=== PATIENT | female | born 1985 | race Two or more races ===

== ENCOUNTER 2020-08-24 21:05 | Emergency (ER) | payer SELFPAY ==
[~2020-08-24] VITALS: Ht 154.9 cm; Wt 88.6 kg
[~2020-08-24 21:05] MED LIST: CLIN300C9 PO; HYDR1TAB13 PO; IBUP-1060 PO
[2020-08-24 21:14] VITALS: BP 134/74
[2020-08-24] MEDS ORDERED: HYDR-2761 PO (22:31)
[2020-08-24] MEDS ORDERED: DOXY100T PO (22:31)
[2020-08-24] MEDS ORDERED: CEPH500C PO (22:31)
--- NOTE | 2020-08-24 22:31 | ED.ADGEN ---
Past Medical History Past Medical History: Asthma Past Surgical History: No Surgical History, Smoking Status: Never Smoker Alcohol Use: None Drug Use: None General Adult EDM: Chief Complaint: SYNCOPE HPI: HPI: Patient is a 35 year old female, brought to the emergency department by her for evaluation after syncopal episode while in the shower. Patient states she has bilateral labial abscesses and while she was in the shower this evening she applied pressure to them and both abscesses opened up. While she was squeezing the abscesses she began to feel weak and became very dizzy. She states that she got out of the shower to call for her family and then the next thing she remembers that she woke up on the floor. Patient states that she is aware of who she was when she woke up on the floor she just did not remember passing out. She denies any nausea, vomiting, vision changes, dizziness, headache, abdominal pain, numbness, tingling, or weakness at this time. She complains of bilateral labial pain that she rates a 10 out of 10 on the pain scale, she denies any alleviating factors, the pain increases if the areas are touched. Patient states when she fell she must of hit her head on something she has a 1 cm laceration just below her medial right eye. Review of Systems: Review of Systems: Complete ROS is negative unless otherwise noted in HPI. Current Medications: Current Medications Medications (Trade) Dose Ordered Sig/[facility] Start Time Stop Time Status Last Admin Dose Admin Acetaminophen/ Hydrocodone Bitart (Lortab 7.5/325) 1 tab 1X ONCE 08/24/20 22:45 08/24/20 22:46 DC Cephalexin HCl (Keflex) 500 mg 1X ONCE 08/24/20 22:45 08/24/20 22:46 DC Doxycycline Hyclate (Vibra-Tab) 100 mg 1X ONCE 08/24/20 22:45 08/24/20 22:46 DC Allergies: Allergies: Allergies Coded Allergies Type Severity Reaction Last Updated Verified No Known Drug Allergies 11/27/13 No Physical Exam: PE: See Above Constitutional: Well developed, well nourished, no acute distress, non-toxic appearance. HENT: Normocephalic, atraumatic, bilateral external ears normal, nose normal. Eyes: PERRLA, EOMI, conjunctiva normal, no discharge. Neck: Normal range of motion, no stridor. Cardiovascular: Heart rate regular rhythm Lungs & Thorax: Respirations even and unlabored, no retractions, no respiratory distress Abdomen: Nontender, soft Female : abscesses present of bilateral labia majora, both abscess sites are oozing bloody pus with moderate erythema, warmth, and indurated tissue surrou nding abscess sites. Skin: Warm, dry, no erythema, no rash; superficial laceration measuring 1 cm just below the medial aspect of the right eye, no visible foreign body, no active bleeding. Back: No tenderness Extremities: No cyanosis, ROM intact, no edema. Neurologic: Alert and oriented X 3, normal motor, normal sensory, no focal deficits noted. Psychologic: Affect normal, judgement normal, mood normal. Current Patient Data: Vital Signs: Vital Signs Date Time Temp Pulse Resp B/P (MAP) Pulse Ox O2 Delivery O2 Flow Rate FiO2 08/24/ 21:14 97.8 99 22 134/74 (94) 99 Room Air 97.8 EKG: EKG: [] Heart Score: C/O Chest Pain: No Risk Scores: Score 0 - 3: 2.5% MACE over next 6 weeks - Discharge Home Score 4 - 6: 20.3% MACE over next 6 weeks - Admit for Clinical Observation Score 7 - 10: 72.7% MACE over next 6 weeks - Early Invasive Strategies Radiology/Procedures: Radiology/Procedures: Laceration Repair by me: Anesthesia: None Location: Below medial right eye Tendon/Joint/Nerves: No injury Foreign body: None detected after copious irrigation and exploration with NS and chlorhexidine Technique: Dermabond Complexity: No subcutaneous sutures/mucosal repair/edge excision Post Closure Length: 1 cm Patient's bleeding was easily controlled in the department and there is no indication of anemia. No evidence of compartment syndrome, neurologic injury, vascular injury, open joint, tendon laceration, or foreign body. Patient is appropriate for outpatient follow up. Course & Med Decision Making: Course & Med Decision Making Pertinent Labs and Imaging studies reviewed. (See chart for details) 35-year-old female presented to emergency department for evaluation following a syncopal episode after applying pressure to labial abscesses while in the shower. Both abscess sites were open and draining bloody pus, therefore no incision and drainage was needed. Patient declined CT of her head., No neuro deficits, no signs of a closed head injury. Patient's facial laceration was closed as documented above. Prescriptions written for doxycycline, Keflex, and hydrocodone. I recommended sitz baths and application of warm moist heat to the affected areas. Recommended follow-up with primary care doctor for reevaluation in the next 1 to 2 days, return to the ER if symptoms worsen or fever develop. Patient verbalized an understanding of home care, medications, follow-up, and return to ED instructions and was in agreement with the plan of care. [] Dragon Disclaimer: Dragon Disclaimer: This electronic medical record was generated, in whole or in part, using a voice recognition dictation system. Departure Departure Impression: Primary Impression: Abscess of left genital labia Additional Impressions: Abscess of right genital labia Vasovagal syncope Disposition: 01 HOME / SELF CARE / HOMELESS Condition: STABLE Referrals: UNKNOWN PCP NAME (PCP) Patient Instructions: Syncope, [id number], Vulvar Abscess, [id number] Additional Instructions: Fill the prescription(s) and use as directed. You may also take ibuprofen as needed for pain. Apply warm, moist packs to the area to help decrease discomfort. I recommend that you take a sitz bath 3-4 times daily. Follow up with your primary care doctor or return to the ER in 48 hours to have wound rechecked. Return to the ER sooner if your symptoms worsen or fever develops. Ignacio [facility] [address] [place] [address] [facility] [address] [place] [address] [facility] [address] [facility] [place] [place] [address] [facility] [address] [place] [address] [facility] [address] [place] [address] [facility] [address] [place] [address] [facility] [address] [place] [address] [facility] [address] [place] [address] [facility] [employer] [address] [place] [address] [facility] [address] [place] [address] Scripts Hydrocodone Bit/Acetaminophen (HYDROCODONE-APAP 5-325 ) 1 Tab Tablet 1 TAB PO PRN Q6HRS PRN for PAIN for 3 Days, #10 TAB 0 Refills Prov: ASTON KRISHNAMURTHY APRN 08/24/20 Cephalexin (CEPHALEXIN) 500 Mg Capsule 1 CAP PO QID for 10 Days, #40 CAP 0 Refills Prov: ASTON KRISHNAMURTHY APRN 08/24/20 Doxycycline Hyclate (DOXYCYCLINE HYCLATE) 100 Mg Tablet 1 TAB PO BID for 10 Days, #20 TAB 0 Refills Prov: ASTON KRISHNAMURTHY APRN 08/24/20 Problem Qualifiers ASTON KRISHNAMURTHY APRN August 24, 2020 22:31
[2020-08-24] MEDS: HYDROcodone/APAP 7.5/325MG 1 TAB TABLET PO ONE (22:45)
[2020-08-24] MEDS: DOXYCYCLINE HYCLATE 100 MG TABLET PO ONE (22:45)
[2020-08-24] MEDS: CEPHALEXIN 250 MG CAPSULE. PO ONE (22:45)
== END 2020-08-24 23:06 | disposition home or self-care (01) ==
LOC: ER 21:05
DX: S01.111A Laceration without foreign body of right eyelid and periocular area, initial encounter (principal); N76.4 Abscess of vulva; R55 Syncope and collapse; J45.909 Unspecified asthma, uncomplicated; X58.XXXA Exposure to other specified factors, initial encounter; Y93.89 Activity, other specified; Y92.89 Other specified places as the place of occurrence of the external cause; Y99.8 Other external cause status
CPT/HCPCS: 12011; 99283